=== PATIENT | female | born 1995 | race Caucasian/White ===

== ENCOUNTER 2018-01-28 13:28 | Day surgery (SDC) | payer OTHER ==
[~2018-01-28 13:28] MED LIST: ACETAMINOPHEN 1000 MG/100 ML IVPB; CEFAZOLIN 1 GM INJ; LIDOCAINE 2% (SDV) 5 ML INJ
[2018-01-28] MEDS ORDERED: ROCURONIUM 50 MG INJ (14:28)
[2018-01-28] MEDS ORDERED: PROPOFOL 20 ML (14:28)
[2018-01-28] MEDS ORDERED: DEXAMETHASONE 4 MG/ML 1 ML INJ (14:37)
[2018-01-28] MEDS ORDERED: ONDANSETRON 4 MG INJ (14:39)
[2018-01-28] MEDS ORDERED: BUPIVACAINE 0.5% (SDV) 30 ML INJ (14:43)
[2018-01-28] MEDS ORDERED: SUGAMMADEX SODIUM 200 MG/2 ML VIAL IV (14:54)
[2018-01-28] MEDS ORDERED: HYDROCODONE/APAP (5/325) TAB PO (15:00)
[2018-01-28] MEDS ORDERED: HYDROmorphONE (0.2 MG/ML) 10ML SYG IV ×2 (15:30)
[2018-01-28] MEDS ORDERED: MEPERIDINE 25 MG INJ IV (15:30)
[2018-01-28] MEDS ORDERED: LABETALOL HCL 20MG INJ IV (15:30)
[2018-01-28] MEDS ORDERED: ALBUTEROL 0.083% (NEB) 2.5 MG/3 ML AMP HHN (15:30)
[2018-01-28] MEDS ORDERED: DIPHENHYDRAMINE 50 MG INJ IV (15:30)
[2018-01-28] MEDS ORDERED: EPHEDrine SULFATE 50 MG/5 ML SYG IV (15:30)
[2018-01-28] MEDS ORDERED: METOCLOPRAMIDE 10 MG INJ IV (15:30)
[2018-01-28] MEDS ORDERED: FENTAnyl 50 MCG/ML VIAL IV ×3 (15:30)
[2018-01-28] MEDS ORDERED: hydrALAzine 20 MG INJ IV (15:30)
[2018-01-28] MEDS ORDERED: OXYCODONE/ACETAMINOPHEN (5/325) TAB PO ×2 (15:30)
[2018-01-28] MEDS: ONDANSETRON 4 MG INJ IV (15:37)
[2018-01-28] MEDS: HYDROmorphONE (0.2 MG/ML) 10ML SYG IV (15:37)
== END 2018-01-28 17:10 | disposition home or self-care (01) ==
LOC: SDS 13:28
DX: J35.01 Chronic tonsillitis (principal); E66.9 Obesity, unspecified
CPT/HCPCS: 42826; 84703; 88304